=== PATIENT | female | born 1950 | race Caucasian/White ===

== ENCOUNTER 2024-01-22 20:37 | Inpatient (IN) | payer MEDICARE, SELFPAY ==
[2024-01-22] VITALS (12 sets, daily range): BP systolic 141–180; BP diastolic 79–101; BMI 39.3
[2024-01-22 18:05] LABS: % Basophils 1.2 % (0-2); % Eosinophils 2.8 % (0-6); % Immature Granulocytes 0.4 % (0-0.5); % Lymphocytes 17.7 % (20.5-51.1); % Monocytes 10.3 % (1.7-9.3); % Neutrophils 67.6 % (42.2-75.2); Absolute Basophils 0.2 10^3/uL (0-0.2); Absolute Eosinophils 0.4 10^3/uL (0-0.7); Absolute Immature Granulocytes 0.1 10^3/uL (0-0.05); Absolute Lymphocytes 2.4 10^3/uL (1.2-3.4); Absolute Monocytes 1.4 10^3/uL (0.1-0.6); Hematocrit 43.8 % (37.0-47.0); Hemoglobin 15.4 g/dL (12.0-16.0); Mean Corp Hgb Conc. 35.2 g/dL (33.0-37.0); Mean Corpuscular Hgb 31.5 pg (27.0-31.0); Mean Corpuscular Volume 89.6 fL (81.0-99.0); Mean Platelet Volume 10.3 fL (7.4-10.4); Nucleated Red Blood Cells % 0 %; Platelet Count 290 10^3/uL (130-400); Red Blood Cell Count 4.89 10^6/uL (4.20-5.40); Red Cell Dist. Width 13.1 % (11.5-14.5); White Blood Cell Count 13.2 10^3/uL (4.8-10.8)
--- NOTE | 2024-01-22 18:09 | ED.GENMED ---
History of Present Illness
General
Chief Complaint: Back Pain
Source: patient and spouse
Exam Limitations: none
Time Seen by Provider: 01/22/24 17:56
History of Present Illness
History of Present Illness:
Patient with onset of bilateral jaw pain at about 130 today. This went to her shoulders into her upper arms. No back pain or searing pain. No diaphoresis. No nausea. No history of same. Symptoms are moderate nature.
Past History
Past History
ED Past Medical History: HTN, Hypercholesterolemia and Other (Arthritis)
ED Past Surgical History: Orthopedic and Tonsilectomy
Social History
Personal:
Review of Systems
Review of Systems
All Other Systems: Not applicable
ABD/GI: Reports no symptoms; Denies bloody stools
Phy Exam
Physical Exam
Physical Exam:
GENERAL: Alert and oriented in no apparent distress
EYE: Orbits normal.
NECK: Supple
CARDIAC: Regular rate and rhythm without any obvious murmurs. Equal pulses bilaterally
LUNGS: Clear breath sounds,normal
ABDOMEN: Soft, without focal tenderness or distention
NEUROLOGICAL: Alert and oriented , grossly non-focal
SKIN: Warm and dry, no rash or lesion, no discoloration, skin intact.
MUSCULOSKELETAL: No edema,no deformity.Good color
PSYCH: Normal and appropriate interaction.
Course
Orders/Labs/Results
Orders:
Orders
01/22/24 17:44
ECG [Electrocardiogram (*1)] Urgent
Reason for Study: Other
Other Reason for Exam: back pain
EKG- Treatment ONCE
01/22/24 17:56
Complete Blood Count/With Diff Urgent
Comprehensive Metabolic Panel Urgent
PTT Urgent
Prothrombin Time Urgent
01/22/24 18:03
Heparin 1000 Units/500 ml [Heparin] 1,000 units in 500 ml .ROUTE .STK-MED
Heparin Sodium,Porcine/Ns/Pf [Heparin 2000 Units/1000 ml] 2,000 unit in 1,000 ml .ROUTE .STK-MED
Lidocaine HCl/Pf [Xylocaine-Mpf 1% Vial] 50 mg .ROUTE .STK-MED ONE
Nitroglycerin [Tridil] 1,500 mcg .ROUTE .STK-MED ONE
Verapamil Injectable [Isoptin/Verapamil Injection] 5 mg .ROUTE .STK-MED ONE
01/22/24 18:15
Troponin I Routine
01/22/24 18:38
Ticagrelor [Brilinta] 180 mg .ROUTE .STK-MED ONE
01/22/24 18:39
Fentanyl Citrate/Pf [Sublimaze] 100 mcg .ROUTE .STK-MED ONE
Heparin 5,000 units .ROUTE .STK-MED ONE
Hydrocortisone Sod Succinate [Solu-Cortef] 100 mg .ROUTE .STK-MED ONE
Midazolam HCl [Versed] 2 mg .ROUTE .STK-MED ONE
01/22/24 18:40
Aspirin Chewable [Low Strength Aspirin] 324 mg .ROUTE .STK-MED ONE
01/22/24 18:46
Heparin 10,000 units .ROUTE .STK-MED ONE
Abnormal Lab Results
01/22/24 01/22/24 01/22/24
17:56 18:41 18:54
WBC 13.2 H 10^3/uL
(4.8-10.8)
MCH 31.5 H pg
(27.0-31.0)
Abs Immat Gran (auto) 0.1 H 10^3/uL
(0-0.05)
Absolute Neuts (auto) 9.0 H 10^3/uL
(1.4-6.5)
Absolute Monos (auto) 1.4 H 10^3/uL
(0.1-0.6)
Lymphocytes % 17.7 L %
(20.5-51.1)
Monocytes % 10.3 H %
(1.7-9.3)
Glucose 119 H mg/dl
(70-99)
AST 42 H U/L
(14-36)
POC ACT Low Range 182 H Seconds 271 H Seconds
(116-155) (116-155)
01/22/24 17:56
01/22/24 17:56
Vital Signs
Initial and Last Documented VS:
Initial Vital Signs
Temp Pulse Resp BP Pulse Ox
98.1 F 81 18 180/94 96
01/22/24 16:51 01/22/24 16:51 01/22/24 16:51 01/22/24 16:51 01/22/24 16:51
Last Documented Vital Signs
Temp Pulse Resp BP Pulse Ox
98.1 F 72 18 167/89 93
01/22/24 16:51 01/22/24 18:15 01/22/24 18:00 01/22/24 18:15 01/22/24 18:00
MDM/Problems Addressed
Differential Diagnosis Includes:
EKG shows a lateral CO with ST depression significantly inferior lateral. STEMI alert was called. Aspirin Brilinta and heparin given.
*EKG
Interpreted by ED Provider?: NA
Comparison EKG: changes noted
Heart Rate: 71
Rate: normal
Rhythm: sinus
[place]: left axis deviation
Interval: normal interval
QRS Pattern: normal QRS
Ischemia: ST elevation (Lateral ST elevation with significant ischemic changes)
*Station Mechanic Interpretation
Rate: normal
Interpretation: normal
Heart Rate: 72
Rhythm: sinus
*Critical Care Note
Total Time (30-74mins, 75-104mins- exclusive of procedures): 35
ED Attending Note
-
Portions of this chart may have been created with voice recognition software.� Occasional wrong word or��sound alike� substitutions may have occurred due to the inherent limitations of voice recognition software.
Discharge Plan
Departure
Patient Disposition: Admit
Date of Disposition: 01/22/24
Time of Disposition: 18:15
Presentation/result/management discussed w/ accepting MD/DO: Invasive cardiology
Discharge Problem:
Acute lateral CO
Interventions
Interventions:
*Risk Screen - Suicide Last Done: 01/22/24 18:47
*General Assessment Last Done: 01/22/24 18:47
*Neglect/Abuse Screening Last Done: 01/22/24 18:47
ED- Fall Risk Assessment Last Done: 01/22/24 18:04
*ED COVID-19 Vaccine History Last Done: 01/22/24 18:47
*Nursing Disposition Last Done: 01/22/24 18:47
ED-Musculoskeletal Assessment Last Done: 01/22/24 18:04
Discharge Date and Time
Discharge Date/Time: 01/22/24 18:49
[2024-01-22 18:12] LABS: INR 1.01; PT 13.3 Sec (11.4-14.6)
[2024-01-22 18:13] LABS: APTT 28.2 Sec (23.4-35.0)
[2024-01-22 18:19] LABS: ALT (SGPT) 21 U/L (0-35); AST (SGOT) 42 U/L (14-36); Albumin 4.7 g/dl (3.5-5.0); Alkaline Phosphatase 68 U/L (38-126); Blood Urea Nitrogen 15 mg/dl (7-17); Calcium 9.9 mg/dl (8.4-10.2); Carbon Dioxide 25 mmol/L (22-30); Chloride 100 mmol/L (98-107); Estimated Creatinine Clearance 84 ml/min; Glucose 119 mg/dl (70-99); Potassium 4.2 mmol/L (3.5-5.1); Sodium 136 mmol/L (135-145); Total Bilirubin 0.7 mg/dl (0.2-1.3); Total Protein 7.7 g/dl (6.3-8.2); eGFR > 60.00
[2024-01-22 18:46] LABS: ACT-LR - POC 182 Seconds (116-155)
[2024-01-22 18:59] LABS: ACT-LR - POC 271 Seconds (116-155)
[2024-01-22 19:56] LABS: ACT-LR - POC 263 Seconds (116-155)
--- NOTE | 2024-01-22 20:03 | ITS.CL.CATH ---
[facility] - Catheterization
Cardiac Catheterization
Procedure Report:
LEFT HEART CATHETERIZATION
Date of Procedure: January 22, 2024
Referring: [place] emergency department
PROCEDURES:
1. Left heart catheterization, coronary angiogram.
2. Ultrasound-guided access.
3. Successful percutaneous coronary artery intervention of 2 serial stenoses--80% eccentric ostial OM1 and 90% hazy thrombotic proximal OM1 with 2 overlapping 2.25 x 12 mm and 2.75 x 15 mm Medtronic [place] drug-eluting stents, postdilated with 2.75 x
12 mm NC trek balloon at 16 malissa distally and 20 malissa proximally with an excellent angiographic result.
INDICATION: Patient is a 73-year-old female with past medical history of hypertension, hypothyroidism, hyperlipidemia, osteoarthritis of left knee, reflex sympathetic dystrophy, morbid obesity who presents this evening after having sudden onset of
jaw and neck discomfort found to have a lateral ST elevation [place] for which heart team was emergently activated and patient was taken up to the heart catheterization lab for emergent intervention. In the emergency department patient received 5000
units of unfractionated IV heparin, 325 mg of aspirin, 180 mg of Brilinta. Detailed informed consent was obtained before bringing patient up to the lab.
ACCESS: Right radial artery, 6 Egyptian sheath, and ultrasound-guided
HEMODYNAMICS : (mmHg)
AO (s/d) : 173/93
LV (s/d) :182/13
LVEDP : 22
CORONARY FINDINGS
DOMINANCE: Right
LEFT MAIN: The left main artery is a large-caliber vessel which gives rise to the left anterior descending artery and the left circumflex artery. There is minimal luminal irregularities.
LEFT ANTERIOR DESCENDING: The left anterior descending artery is a medium to large caliber vessel gives rise to 1 major diagonal branch as it courses to the anterior interventricular groove and wraps around the apex. There is mild diffuse
atherosclerotic plaque.
CIRCUMFLEX: The left circumflex artery is a medium caliber vessel which gives rise to 2 major obtuse marginal branches, moderately tortuous. OM1 has a eccentric 80% stenosis and proximal OM1 has 90% hazy thrombotic stenosis which is likely culprit
of presenting acute coronary syndrome. OM 2 has a 30 to 40% stenosis in the midportion with a subtotal occlusion in the distal portion with faint right to left collaterals.
RIGHT CORONARY ARTERY: The right coronary artery is a large-caliber, dominant vessel which gives rise to the right posterior descending artery and the right posterolateral system. There is an eccentric 70-80% stenosis with ventricularization and
significant pressure dampening upon selective engagement with a 5 Egyptian JR4 diagnostic catheter. Mid RCA has diffuse 40 to 50% stenosis and ostial RPDA has eccentric 20 to 30% stenosis. There are faint right to left collaterals.
CORONARY INTERVENTION:
SEDATION: 78 minutes of procedural sedation was utilized. An independent medical affairs leader was present to assist with and help manage the patient's level of consciousness and physiologic status.
RADIATION SUMMARY: Fluoro Time (min): 23.0, Dose (mGy): 1374.8, DAP (Gy.cm2) : 72.0
Closure Device: Vascular band over right radial artery, 10 cc of air
CONCLUSIONS
1. Successful percutaneous coronary artery intervention of 2 serial stenoses--80% eccentric ostial OM1 and 90% hazy thrombotic proximal OM1 with 2 overlapping 2.25 x 12 mm and 2.75 x 15 mm Medtronic [place] drug-eluting stents, postdilated with 2.75 x
12 mm NC trek balloon at 16 malissa distally and 20 malissa proximally with an excellent angiographic result.
2. RCA has an eccentric 70-80% stenosis with ventricularization and significant pressure dampening upon selective engagement with a 5 Egyptian JR4 diagnostic catheter. Mid RCA has diffuse 40 to 50% stenosis and ostial RPDA has eccentric 20 to 30%
stenosis.
3. OM 2 has a 30 to 40% stenosis in the midportion with a subtotal occlusion in the distal portion with faint right to left collaterals.
4. Elevated LVEDP at 22 mmHg.
RECOMMENDATIONS
1. Uninterrupted dual antiplatelet therapy with daily baby aspirin and Brilinta 90 mg twice daily along with high intensity statin and beta-vandana as tolerated.
2. Wean radial band per protocol.
3. Full echocardiogram to assess biventricular function and rule out any significant valvular abnormalities.
4. Discussed staged PCI to ostial RCA prior to discharge.
5. Aggressive management of cardiovascular risk factors.
6. Eventual outpatient referral for cardiac rehab.
Ca Rich MD, FACC, [facility]
--- NOTE | 2024-01-22 20:12 | HPS.HSE ---
Family Physician
-
Family Physician: Asya Bonilla
Chief Complaint
-
Jaw Pain
History of Present Illness
Patient is a 73-year-old female with past medical history of hypertension, hypothyroidism, hyperlipidemia, osteoarthritis of left knee, reflex sympathetic dystrophy, morbid obesity who presents this evening after having sudden onset of jaw and neck
discomfort found to have a lateral ST elevation [place] for which heart team was emergently activated and patient was taken up to the heart catheterization lab for emergent intervention. In the emergency department patient received 5000 units of
unfractionated IV heparin, 325 mg of aspirin, 180 mg of Brilinta. Detailed informed consent was obtained before bringing patient up to the lab. Patient was chest pain-free in the emergency department. A lengthy discussion had to be had given
patient initially was not sure if she wanted to undergo heart catheterization. After detailed review of the risk of not treating a possible PR she was agreeable and accepted the risk and benefits associated with the procedure.
Medical History
Past Medical History
Past Medical History: Reports HTN and Hypercholesterolemia
Past Surgical History: Reports None
Social History
Tobacco: Non-smoker
Alcohol: Occasional
Drug: None
Personal:
Living: With Family
Employment: Retired
Family History
Family History: CAD
Allergies / Home Medications
Allergies reflects when Allergies were last updated in [facility].
Home Medications with original date entered in [facility]
Allergy/Medication List:
Allergies confirmed. Questionable iodine allergy/or contrast and thus 100mg solumedrol given preprocedurally.
Medication list now available
Review of Systems
-
A 12 point ROS was completed and negative except as noted: Yes
Physical Exam
Vital Signs
Vital Signs
Temp Pulse Resp BP Pulse Ox
98.1 F 72 18 167/89 93
01/22/24 16:51 01/22/24 18:15 01/22/24 18:00 01/22/24 18:15 01/22/24 18:00
Physical Exam
General: Well Developed, Well Nourished and No Apparent Distress
HEENT: Moist mucous membranes, Atraumatic and PERRLA
Respiratory: Clear and Wheezes; No Rales, Rhonchi or Crackles
Cardiac: S1/S2, Regular Rhythm and JVD; No Murmur, Rub or Gallop
Breast: Deferred by me
GI: Soft, Non Tender, Non Distended and Normal Bowel Sounds
Musculoskeletal: No Clubbing, No Cyanosis and No Edema
Skin: Warm and Dry
Neuro: AO x 3
Psych: Calm
Laboratory Results
-
01/22/24 17:56
01/22/24 17:56
Laboratory Results
PT 13.3 Sec (11.4-14.6) 01/22/24 17:56
INR 1.01 01/22/24 17:56
APTT 28.2 Sec (23.4-35.0) 01/22/24 17:56
Total Bilirubin 0.7 mg/dl (0.2-1.3) 01/22/24 17:56
AST 42 U/L (14-36) H 01/22/24 17:56
ALT 21 U/L (0-35) 01/22/24 17:56
Alkaline Phosphatase 68 U/L (38-126) 01/22/24 17:56
Troponin I Cancelled 01/22/24 17:56
Data Reviewed
-
Critical Care Time (in minutes): 45
Diagnostic Radiology: Report Reviewed by me
Medical Tests (Nuc Med, Echo, EKG etc): Image Personally Visualized and interpreted
Lab Data: Labs Reviewed by me
Old Records: Reviewed
Impression/Plan
-
IMPRESSION:Patient is a 73-year-old female with past medical history of hypertension, hypothyroidism, hyperlipidemia, osteoarthritis of left knee, reflex sympathetic dystrophy, morbid obesity who presents this evening after having sudden onset of
jaw and neck discomfort found to have a lateral ST elevation [place] for which heart team was emergently activated and patient was taken up to the heart catheterization lab for emergent intervention. In the emergency department patient received 5000
units of unfractionated IV heparin, 325 mg of aspirin, 180 mg of Brilinta. Detailed informed consent was obtained before bringing patient up to the lab.
PLAN: s/p Successful percutaneous coronary artery intervention of 2 serial stenoses--80% eccentric ostial OM1 and 90% hazy thrombotic proximal OM1 with 2 overlapping 2.25 x 12 mm and 2.75 x 15 mm Medtronic [place] drug-eluting stents, postdilated with
2.75 x 12 mm NC trek balloon at 16 malissa distally and 20 malissa proximally with an excellent angiographic result.
RECOMMENDATIONS
1. Uninterrupted dual antiplatelet therapy with daily baby aspirin and Brilinta 90 mg twice daily along with high intensity statin and beta-vandana as tolerated.
2. Wean radial band per protocol.
3. Full echocardiogram to assess biventricular function and rule out any significant valvular abnormalities.
4. Discussed staged PCI to ostial RCA prior to discharge.
5. Aggressive management of cardiovascular risk factors.
6. Eventual outpatient referral for cardiac rehab.
7. We will consult internal medicine to help with her chronic medical problems.
--- NOTE | 2024-01-22 20:35 | PTCARENOTE ---
Admitted to IVU from cardiac color laboratory technician with 2 color laboratory technician RNs present. Pt awake, alert, oriented x 4. Speech clear. On placed on 2L/NC for sats 88% on room air. BBS present. Clear to auscultation. Decreased to B bases. Pt in SR. VS per protocol. See
flowsheet. No c/o jaw pain, tooth pain, no c/o pain to shoulders or arms. No c/o CP or back pain. R radial TR band intact with 10 mls placed from color laboratory technician at 1956. Protocol followed for release of air from TR band. R hand sat after O2 applied at 2
L/NC is 98%-100%. IV to left hand capped. Audible heart tones. EKG done. Troponin drawn per order. Belly soft, nontender. Normoactive bowel sounds x 4. Palpable pulses to L radial and B DP and PT. Pt positioned and repositioned in bed according to
her comfort level with hx of cervical laminectomy and RSD. Multiple pillows tried under her head and under knees according to pillow's thickness and her comfort level. Admission questions completed. and son at bedside to see pt.
--- NOTE | 2024-01-22 20:47 | CON.HOSP ---
Family Physician
-
Family Physician: Asya Bonilla
Chief Complaint
-
jaw pain
History of Present Illness
73-year-old female past medical history of asthma, hypertension, hypothyroidism, hyperlipidemia, osteoarthritis of left knee, reflex sympathetic dystrophy, morbid obesity presented today with sudden onset of jaw and neck discomfort and found to have
lateral STEMI. Emergent catheterization was performed with PCI performed.
Patient denies any symptoms at this time apart from some leg cramping from her position in bed. She denies any chest pain or shortness of breath.
Medical History
Past Medical History
Past Medical History: Reports Other (asthma, hypertension, hypothyroidism, hyperlipidemia, osteoarthritis of left knee, reflex sympathetic dystrophy, morbid obesity)
Past Surgical History: Reports None
Social History
Tobacco: Non-smoker
Alcohol: None
Drug: None
Allergies / Home Medications
Allergies reflects when Allergies were last updated in [facility].
Home Medications with original date entered in [employer]
Allergy/Medication List:
Allergies
Allergy/AdvReac Type Severity Reaction Status Date / Time
azithromycin Allergy nausea, Verified 01/22/24 18:09
[From Zithromax Z-Reuben] stomach
pain, rash
levofloxacin [From Levaquin] Allergy nausea, Verified 01/22/24 18:09
stomach
pain, rash
Penicillins Allergy nausea, Verified 01/22/24 18:09
stomach
pain, rash
Shellfish *RETIRED-03/19/12 Allergy Unknown Verified 01/22/24 18:09
[Shellfish]
Sulfa (Sulfonamide Allergy rash, Verified 01/22/24 18:09
Antibiotics) lightheaded,
[Sulfa(Sulfonamide nausea,
Antibiotics)] weakness
chocolate Allergy throat Uncoded 01/22/24 18:09
closes
environmental Allergy lightheaded, Uncoded 01/22/24 18:09
sneezing,
hayfever
symptoms
generic pills Allergy rash, Uncoded 01/22/24 18:09
lightheaded,
nausea,
weakness
pineapple, plantain Allergy lightheaded, Uncoded 01/22/24 18:09
mouth
tingles &
chaudhry
Home Medications
albuterol sulfate 90 mcg/actuation aerosol inhaler (Ventolin HFA) 2 puff inhalation R BIDPRN PRN sob/wheezing 01/22/24
ascorbic acid (vitamin C) 500 mg tablet (Vitamin C) 500 mg PO DAILY 01/22/24
beclomethasone diprop (AQ) 42 mcg (0.042 %) nasal spray 84 mcg intranasal BID 01/22/24
calcium carbonate (Calcium 600) 600 mg PO DAILY 01/22/24
diazepam 2 mg tablet 2 mg PO BIDPRN PRN muscle spasms 01/22/24
enalapril maleate 20 mg tablet (Vasotec) 20 mg PO DAILY 01/22/24
fexofenadine 60 mg-pseudoephedrine ER 120 mg tablet,ext.release,12 hr (Lacey-D 12 Hour) 1 tab PO DAILY 01/22/24
ibuprofen 200 mg tablet (Advil) 400 mg PO BIDWMEAL 01/22/24
levothyroxine 75 mcg tablet (Synthroid) 75 mcg PO DAILY 01/22/24
magnesium 250 mg tablet 250 mg PO DAILY 01/22/24
multivitamin-ferrous fumarate-folic acid 18 mg-400 mcg tablet (Centrum) 1 tab PO DAILY 01/22/24
prednisone 5 mg tablet 5 mg PO DAILYPRN PRN swelling 01/22/24
vitamin E 268 mg (400 unit) capsule 268 mg PO DAILY 01/22/24
Review of Systems
-
History Source: Patient
A 12 point Review of Systems was completed except as noted: Yes
Constitutional: Reports No Symptoms
EENT: Reports No Symptoms
Respiratory: Reports See HPI
Cardiac: Reports See HPI
Abdomen/GI: Reports No Symptoms
: Reports No Symptoms
Musculoskeletal: Reports No Symptoms
Skin: Reports No Symptoms
Neurological: Reports No Symptoms
Endocrine: Reports No Symptoms
Hematologic/Lymphatic: Reports No Symptoms
Psych: Reports No Symptoms
Physical Exam
Vital Signs
Vital Signs
Temp Pulse Resp BP Pulse Ox
98.1 F 72 18 167/89 93
01/22/24 16:51 01/22/24 18:15 01/22/24 18:00 01/22/24 18:15 01/22/24 18:00
Physical Exam
General: Well Developed, Well Nourished and No Apparent Distress
HEENT: Normocephalic, Moist Mucous Membranes and Atraumatic
Respiratory: Clear
Cardiac: S1/S2 and Regular Rhythm; Negative Murmur or Rub
GI: Soft, Non Tender, Non Distended and Normal Bowel Sounds
Rectal: Deferred by Provider
Musculoskeletal: No Clubbing, No Cyanosis and No Edema
Skin: Negative Rash
Neuro: Nonfocal/Grossly Intact
Laboratory Results
-
Laboratory Results
01/22/24 17:56
01/22/24 17:56
PT 13.3 Sec (11.4-14.6) 01/22/24 17:56
INR 1.01 01/22/24 17:56
APTT 28.2 Sec (23.4-35.0) 01/22/24 17:56
Total Bilirubin 0.7 mg/dl (0.2-1.3) 01/22/24 17:56
AST 42 U/L (14-36) H 01/22/24 17:56
ALT 21 U/L (0-35) 01/22/24 17:56
Alkaline Phosphatase 68 U/L (38-126) 01/22/24 17:56
Troponin I Cancelled 01/22/24 17:56
Data Reviewed
-
Lab Data: Labs Reviewed
Old Records: Reviewed
Impression / Plan
-
IMPRESSION:
PLAN:
# Lateral STEMI status post PCI of ostial OM1, proximal OM1
-Aspirin, Brilinta, statin, metoprolol started
-Echo pending
-cardiology following
Essential hypertension
-Hold enalapril given catheterization
-As needed hydralazine for elevated blood pressure greater than 170
Asthma
-Continue albuterol as needed
Hypothyroidism
-Continue levothyroxine
Hyperlipidemia
Osteoarthritis of left knee
-Tylenol for pain
-Continue diazepam
-Hold ibuprofen
Reflex sympathetic dystrophy
Morbid obesity
Full code
DVT prophylaxis�subcutaneous heparin
Cardiac diet
--- NOTE | 2024-01-22 22:00 | PTCARENOTE ---
Troponin level 16.4. Saloem OLIVAS notified. No orders given. To check troponin level at 0230 per orders.
Pt refused her atorvastatin due to illness in past with this medication. Pt states she felt thar her 'throat was swollen' after taking this medication at times. PA made aware.
See flowsheet for TR band/post cath.
--- NOTE | 2024-01-22 22:39 | PTCARENOTE ---
Hepled to BSC with RN. Guarding right radial TR band. Pt voided 1150 mls of clear, yellow urine. Pt helped back to bed. Remains in SR. No c/o pain. Sats 100% on 2L/NC.
[2024-01-22] MEDS: LIPITOR PO (23:04)
[2024-01-23] VITALS (13 sets, daily range): BP systolic 114–167; BP diastolic 55–105; BMI 37.4
--- NOTE | 2024-01-23 00:42 | PTCARENOTE ---
Pt helped up to BSC to void 1000 mls of clear, yellow urine. Pt helped back to bed. Repositioned in bed. 2 mls removed from TR band. See flowsheet. Meds given as scheduled.
[2024-01-23] MEDS: HEPARIN 5000 UNITS SC ×2 (00:43→10:10)
[2024-01-23 03:15] LABS: Hemoglobin 15.8 g/dL (12.0-16.0); Mean Corp Hgb Conc. 35.9 g/dL (33.0-37.0); Mean Corpuscular Hgb 31.7 pg (27.0-31.0); Mean Corpuscular Volume 88.4 fL (81.0-99.0); Mean Platelet Volume 10.2 fL (7.4-10.4); Platelet Count 335 10^3/uL (130-400); Red Blood Cell Count 4.98 10^6/uL (4.20-5.40); Red Cell Dist. Width 12.9 % (11.5-14.5); White Blood Cell Count 11.3 10^3/uL (4.8-10.8)
[2024-01-23 03:29] LABS: HDL Cholesterol 45 mg/dl; LDL Cholesterol, Calculated 193 mg/dl; Total Cholesterol 283 mg/dl (50-199); Triglyceride 229 mg/dl (10-149); Very Low Density Lipoprotein 45 mg/dl (0-30)
--- NOTE | 2024-01-23 04:29 | PTCARENOTE ---
Pt labs and EKG done. Helped to BSC to void 450 mls clear, yellow urine. Pt then weighed on standing scale. Pt helped to recliner chair and positioned, repositioned multiple times with pillows for comfort. No c/o jaw pain, CP, no other anginal pain.
Room air sat 95-96%.
Troponin of 40.7 showed to DEISY Mcmahon along with morning EKG. PA also aware of BP. Hydralazine 5 mg prn order for SBP > 170.
Will continue to assess/monitor pt.
[2024-01-23] MEDS: SYNTHROID 75 MCG PO (07:22)
--- NOTE | 2024-01-23 08:26 | PTCARENOTE ---
Assumed care of pt from prev nsg shift; Pt AAOX3, mildly anxious but easily calmed once her questions are answered. Pt w/no CP, jaw pain, or SOB. Pt assisted OOB to for breakfast. Pt's VS stable w/HR in the 80's & BP this AM 117/67. Pt is SR on
telemetry monitoring. R radial access site w/dressing C/D/I w/no signs or symptoms of bleeding or hematoma. This RN reiterated to pt her RUE restrictions post cath. Pt assisted w/ calling breakfast order. Pt w/call dixon within reach & plan of care
ongoing.
--- NOTE | 2024-01-23 08:53 | W.PN.CARDCBS ---
Addendum entered and electronically signed by Rj Cruz MD 01/23/24 11:34:
I saw and examined the patient.
The Sales Assistants And Salespersons's note was reviewed and I agree with the note.
Comment:
GEN: No distress, awake, Ox3
HEENT: supple, anicteric, mmm
LUNGS: CTA, no wheezes/rales
CV: Reg, S1/S2, 1/6 syst LSB, no gallop
ABD: soft, BS+, NT/ND
EXT: No edema
NEURO: Gross non-focal
SKIN: No rash
Plan:
No new chest pains. Will check echocardiogram today.
Continue aspirin and Brilinta.
Continue Toprol and high-dose atorvastatin. LDL was 193. Troponins have peaked at 40.
Continue to trend LFTs.
Restart enalapril.
We discussed that she should not be taking Sudafed or Decongestant allergy type products.
Original Note:
Today's Communication / Plan
-
continue post [place] care
trend troponin to peak
Echo today
DAPT
Impression / Plan
-
PCP: Asya Bonilla MD
CDY: Ca Rich MD (new to pt)
IMPRESSION:
Lateral STEMI
post PCI OM1 ostial/prox 2.25 x 12 mm and 2.75 x 15 mm Medtronic Sylvester overlapping LEONORA 01/22/24
HTN
HLD
Hypothyroidism
Asthma
OA left knee
Reflex sympathetic dystrophy after emergent cervical laminectomy
Obesity
Multiple allergies, cannot tolerate generic medications
PLAN:
post PCI no c/o CP, SOB
tele SR no sig ectopy
troponin still trending 40.7 this am
Rad site stable
Echo today
DAPT ASA/Brilinta (CM to eval cost) She states she has allergy to ASA, but unsure reaction, will monitor closely
LDL 193 refused statin last night as it was generic, reinforced importance of compliance
Will check with pharmacy if we have any brand name meds available
New start to metoprolol, resume enalapril if bp rises
appreciate hospitalist c/s for her complex pmhx
Cardiac rehab c/s
f/u DCA 2-4 weeks
continue to monitor on tele another 24-48 hours
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
Subjective
Date of Service: January 23, 2024
no cp, sob
Objective
Labs:
01/23/24 02:58
Labs
Hgb 15.8 g/dL (12.0-16.0) 01/23/24 02:58
Hct 44.0 % (37.0-47.0) 01/23/24 02:58
Plt Count 335 10^3/uL (130-400) 01/23/24 02:58
PT 13.3 Sec (11.4-14.6) 01/22/24 17:56
INR 1.01 01/22/24 17:56
APTT 28.2 Sec (23.4-35.0) 01/22/24 17:56
Sodium 136 mmol/L (135-145) 01/22/24 17:56
Potassium 4.2 mmol/L (3.5-5.1) 01/22/24 17:56
BUN 15 mg/dl (7-17) 01/22/24 17:56
Creatinine 0.7 mg/dL (0.6-1.0) 01/22/24 17:56
Glucose 119 mg/dl (70-99) H 01/22/24 17:56
Troponins
01/22/24 01/22/24 01/22/24
17:56 18:15 21:02
Troponin I Cancelled Cancelled 16.400 H*
01/23/24
02:58
Troponin I 40.700 H* D
Vital Signs and I&O:
Vital Signs
Temp Pulse Resp BP Pulse Ox
98.3 F 77 18 117/67 96
01/23/24 07:07 01/23/24 07:30 01/23/24 07:07 01/23/24 07:09 01/23/24 08:00
Vital Signs
Temp Pulse Resp BP Pulse Ox
98.3 F 77 18 117/67 96
01/23/24 07:07 01/23/24 07:30 01/23/24 07:07 01/23/24 07:09 01/23/24 08:00
Intake & Output
01/21/24 01/22/24 01/23/24 01/24/24
06:59 06:59 06:59 06:59
Intake Total 450 / 450
Output Total 2600 / 2600
Balance -2150 / -2150
Physical Exam
Physical Exam
NAD, AOX3
S1, S2, RRR
CTAB, non labored, no wheeze
SNTND Bsx4
R rad site c/d/i no HT, good pulse
--- NOTE | 2024-01-23 09:52 | CM ---
Addendum entered by Marge Christopher RN 01/23/24 10:46:
Patient is agreeable to cost
Original Note:
Pricing on Brilinta through patients [facility] ID# [id number], is $86.14 for a 30 day supply retail and $125 for mail order 90 day supply. I will place a free 30 day coupon in the patients red discharge folder
[2024-01-23] MEDS: TOPROL XL 25 MG PO (10:09)
[2024-01-23] MEDS: VITAMIN C 500 MG PO (10:09)
[2024-01-23] MEDS: MAG-TAB SR 84 MG PO (10:09)
[2024-01-23] MEDS: BRILINTA 90 MG PO ×2 (10:09→19:50)
[2024-01-23] MEDS: VITAMIN E 400 UNITS PO (10:09)
[2024-01-23] MEDS: LOW STRENGTH ASPIRIN 81 MG PO (10:09)
[2024-01-23] MEDS: THERAGRAN 1 TABLET PO (10:09)
[2024-01-23] MEDS: CLARITIN PO ×2 (10:09→10:18)
[2024-01-23] MEDS: OSCAL CAL 500 PO ×2 (10:10→10:25)
[2024-01-23 10:35] LABS: ALT (SGPT) 36 U/L (0-35); AST (SGOT) 206 U/L (14-36); Albumin 4.8 g/dl (3.5-5.0); Alkaline Phosphatase 75 U/L (38-126); Blood Urea Nitrogen 14 mg/dl (7-17); Calcium 10.4 mg/dl (8.4-10.2); Carbon Dioxide 22 mmol/L (22-30); Chloride 101 mmol/L (98-107); Estimated Creatinine Clearance 82 ml/min; Glucose 140 mg/dl (70-99); Potassium 3.9 mmol/L (3.5-5.1); Sodium 139 mmol/L (135-145); Total Bilirubin 0.8 mg/dl (0.2-1.3); Total Protein 7.7 g/dl (6.3-8.2); eGFR > 60.00
--- NOTE | 2024-01-23 10:45 | CM ---
Chart reviewed. Patient is independent of ADLS, lives with her in a 2 [address], 2-3 [address] via garage, ambulates with a SPC and RW. Patient is not current with VN and is not interested. Plan is for the patient to return home. CM to follow
[2024-01-23 11:58] LABS: Glycohemoglobin (HgbA1c) 5.4 % (4.0-5.6)
--- NOTE | 2024-01-23 15:11 | W.PN.HOSP.TC ---
Today's Communication/Plan
-
Will continue post [place] management. Continue uninterrupted dual antiplatelet therapy with baby aspirin and Brilinta 90 mg twice daily along with high intensity statin and beta-vandana as tolerated. A full echocardiogram will be conducted to assess
biventricular function and rule out any significant valvular abnormalities. Patient has discussed staged PCI to ostial RCA prior to discharge with cardiology.
Assessment / Plan
Assessment / Plan
- Lateral STEMI status post PCI of ostial OM1, proximal OM1: Monitoring
Aspirin, Brilinta, statin, metoprolol started
Echo pending
cardiology following
Troponins were 40.7 on the morning of 01/22 and then later on dropped to 25.4 later on in the day.
Patient already discussed staged PCI to ostial RCA prior to discharge. Currently agreeable.
Patient has been recommended to follow with aggressive management of cardiovascular risk factors in the outpatient setting. Patient will also need eventual referral for cardiac rehab.
Echocardiogram conducted on 01/22 showed an abnormal ECG with nonspecific ST and T wave abnormalities. No significant changes found when compared to prior EKG from 21 January.
- Essential hypertension: Stable - Monitoring
Hold enalapril given catheterization
As needed hydralazine for elevated blood pressure greater than 170
- Asthma: Stable - Monitoring
continue albuterol as needed
-Elevated liver enzymes: Monitoring
AST is 206 and ALT is 36. Possibly secondary to physical stress from cardiac dysfunction. Will continue to monitor
- Hypothyroidism: Monitoring
Continue levothyroxine
- Hyperlipidemia: Monitoring
Triglycerides are 229 and total cholesterol is 283
High intensity statin
- Osteoarthritis of left knee: Stable - Monitoring
Tylenol for pain
Continue diazepam
Hold ibuprofen
- Reflex sympathetic dystrophy: Stable
As stated by patient in her past medical history.
- Morbid obesity: Stable - Monitoring
BMI is 37.4 which categorizes the patient is morbidly obese.
Full code
DVT prophylaxis�subcutaneous heparin
Cardiac diet
Anticipated Discharge: > 48 hours
Subjective/Interval History
-
Date of Service: January 23, 2024
Met with patient at the bedside. Overall, she feels that she is doing about the same as she was doing prior to her admission. She did not sleep well due to all of the sounds that she was hearing on the unit overnight. She does not report any
chest pain difficulty breathing or nausea. She does not have any shortness of breath. When asked about her chest pain she frequently needed to be redirected as she would veer off into other tangential topics. Patient is kind and pleasant during
discussion and is eager to share her health conditions and past medical history.
Objective Data
-
Labs:
Laboratory Results
01/23/24 01/23/24
02:58 10:05
WBC 11.3 H
Hgb 15.8
Hct 44.0
Plt Count 335
Sodium 139
Potassium 3.9
Chloride 101
Carbon Dioxide 22
BUN 14
Creatinine 0.7
Glucose 140 H
Calcium 10.4 H
Total Bilirubin 0.8
AST 206 H
ALT 36 H
Alkaline Phosphatase 75
Vital Signs:
Vital Signs
Temp Pulse Resp BP Pulse Ox
98.2 F 61 18 128/58 95
01/23/24 14:57 01/23/24 12:30 01/23/24 14:57 01/23/24 11:51 01/23/24 14:57
I&O
01/22/24 01/23/24 01/24/24
06:59 06:59 06:59
Intake Total 450 / 450 720 / 720
Output Total 2600 / 2600
Balance -2150 / -2150 720 / 720
Review of Systems
-
History Source: Patient
Constitutional: Reports Fatigue and Sleep Disturbance
EENT: Reports No Symptoms Reported
Respiratory: Reports No Symptoms
Cardiac: Reports No Symptoms
Abdomen/GI: Reports No Symptoms
Breast: Reports No Symptoms
Genitourinary: Reports No Symptoms
Skin: Reports Other (tingling skin bilaterally on forearms)
Endocrine: Reports No Symptoms
Hematologic / Lymphatic: Reports No Symptoms
Allergy / Immunology: Reports No Symptoms
Physical Exam
-
General: Well Developed, Well Nourished, No Apparent Distress and Comfortable
HEENT: Normocephalic and Moist Mucous Membranes
Respiratory: Clear to Auscultation
Cardiac: Regular Rhythm and S1/S2
Breast: Deferred by me
GI: Soft, Nontender, Nondistended and Normal Bowel Sounds
Rectal: Deferred by Provider
Genito-urinary: Deferred by me
Musculoskeletal: No Clubbing and No Cyanosis
Skin: Warm and Dry
Neuro: Nonfocal/Grossly Intact
--- NOTE | 2024-01-23 16:08 | W.PN.UPDATE ---
Update Note
Progress Note Update
I saw and evaluated the patient. I reviewed the resident�s note and agree with findings and plan as documented in the resident�s note.
Patient currently without chest pain or shortness of breath. Clinically no signs of heart failure.
Continue with anticoagulation and antiplatelet agents per cardiology. Cardiology evaluation including EKGs, cardiac catheterization and intervention as noted. Await echocardiogram.
With regards to chronic medical conditions continue with Synthroid. Hold on checking any TSH with acute issues. Also hold on OPHELIA inhibitor's as her blood pressure is mostly under goal plus she is initiated on BB but might need to restart it
depending on her EF.
[2024-01-23] MEDS: LOVENOX 40 MG SC (18:42)
[2024-01-23] MEDS: LIPITOR 80 MG PO (18:42)
[2024-01-23] MEDS: VASOTEC 5 MG PO (19:50)
--- NOTE | 2024-01-23 23:45 | PTCARENOTE ---
Pt received start of shift HR SR. R radial dressing CDI. Site soft, no hematoma. Slight ecchymosis. Pt denies any CP or jaw/tooth pain. Pt informed to use call dixon prior to getting out of bed. call dixon within reach.
[2024-01-24 02:24] VITALS: BP 121/84
[2024-01-24] MEDS: VALIUM 2 MG PO (02:36)
[2024-01-24 03:58] LABS: Hematocrit 46.2 % (37.0-47.0); Mean Corp Hgb Conc. 34.6 g/dL (33.0-37.0); Mean Corpuscular Hgb 31.5 pg (27.0-31.0); Mean Corpuscular Volume 90.9 fL (81.0-99.0); Platelet Count 354 10^3/uL (130-400); Red Blood Cell Count 5.08 10^6/uL (4.20-5.40); Red Cell Dist. Width 13.3 % (11.5-14.5); White Blood Cell Count 10.6 10^3/uL (4.8-10.8)
[2024-01-24 04:04] VITALS: BMI 37.5
[2024-01-24 04:28] LABS: ALT (SGPT) 34 U/L (0-35); AST (SGOT) 147 U/L (14-36); Albumin 4.6 g/dl (3.5-5.0); Alkaline Phosphatase 86 U/L (38-126); Blood Urea Nitrogen 14 mg/dl (7-17); Calcium 10.2 mg/dl (8.4-10.2); Carbon Dioxide 28 mmol/L (22-30); Chloride 101 mmol/L (98-107); Estimated Creatinine Clearance 82 ml/min; Glucose 90 mg/dl (70-99); Magnesium 1.9 mg/dl (1.6-2.3); Potassium 4.2 mmol/L (3.5-5.1); Sodium 138 mmol/L (135-145); Total Bilirubin 1.3 mg/dl (0.2-1.3); Total Protein 7.4 g/dl (6.3-8.2); eGFR > 60.00
[2024-01-24 07:36] VITALS: BP 105/77
--- NOTE | 2024-01-24 08:34 | PTCARENOTE ---
Received report on patient. Assisted pt to the bathroom, voided moderate amount of urine. Patient now in chair, chair alarm on. AxO but forgetful. VSS.
[2024-01-24] MEDS: VASOTEC PO (08:57)
[2024-01-24] MEDS: SYNTHROID 75 MCG PO (08:59)
[2024-01-24] MEDS: LOW STRENGTH ASPIRIN 81 MG PO (09:00)
[2024-01-24] MEDS: BRILINTA 90 MG PO (09:00)
[2024-01-24] MEDS: MAG-TAB SR 84 MG PO (09:00)
[2024-01-24] MEDS: OSCAL CAL 500 500 MG PO (09:00)
[2024-01-24] MEDS: TOPROL XL 25 MG PO (09:02)
[2024-01-24] MEDS: THERAGRAN 1 TABLET PO (09:02)
[2024-01-24 09:05] VITALS: BP 147/111
[2024-01-24 09:07] VITALS: BP 120/70
[2024-01-24] MEDS: VITAMIN E 400 UNITS PO (09:07)
[2024-01-24] MEDS: CLARITIN 10 MG PO (09:07)
[2024-01-24] MEDS: VITAMIN C 500 MG PO (09:07)
[2024-01-24 11:52] VITALS: BP 122/84
--- NOTE | 2024-01-24 12:35 | W.PN.CARDCBS ---
Addendum entered and electronically signed by Rj Cruz MD 01/24/24 15:15:
I saw and examined the patient.
The Word Processor Operator's note was reviewed and I agree with the note.
Comment:
GEN: No distress, awake, Ox3
HEENT: supple, anicteric, mmm
LUNGS: CTA, no wheezes/rales
CV: Reg, S1/S2, 1/6 syst LSB, no gallop
ABD: soft, BS+, NT/ND
EXT: No edema
NEURO: Gross non-focal
SKIN: No rash
Plan:
Overall doing well status post ID. I reviewed case with interventional cardiology and plan is for her to follow-up as outpatient and consider PCI of RCA.
Continue aspirin, Brilinta, atorvastatin, metoprolol and enalapril.
Original Note:
Today's Communication / Plan
-
post ID, stable for d/c home
f/u DCA, plan for outpt staged PCI RCA after recovers from ID
DAPT
Impression / Plan
-
PCP: Asya Bonilla MD
CDY: Ca Rich MD (new to pt)
IMPRESSION:
Lateral STEMI
post PCI OM1 ostial/prox 2.25 x 12 mm and 2.75 x 15 mm Medtronic [place] overlapping LEONORA 01/22/24
Residual ostial RCA disease
HTN
HLD
Hypothyroidism
Asthma
OA left knee
Reflex sympathetic dystrophy after emergent cervical laminectomy
Obesity
Multiple allergies, cannot tolerate generic medications
PLAN:
post PCI no c/o CP, SOB
tele SR no sig ectopy
troponin peaked at 40.7
Rad site stable
Echo EF 60-65%, inf/lat HK, mild LVH, mild MR/AR
Residual ostial 70-80% RCA stenosis will be treated as a staged intervention after recovers from ID
DAPT ASA/Brilinta. She states she has allergy to ASA, but is tolerating w/o s/e
LDL 193 continue atorvastatin 80mg
New start to metoprolol, continue enalapril
appreciate hospitalist c/s for her complex pmhx
Cardiac rehab c/s
f/u DCA 2-4 weeks
stable for d/c home
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
Subjective
Date of Service: January 24, 2024
no cp,sob
Objective
Labs:
01/24/24 02:47
01/24/24 02:47
Labs
Hgb 16.0 g/dL (12.0-16.0) 01/24/24 02:47
Hct 46.2 % (37.0-47.0) 01/24/24 02:47
Plt Count 354 10^3/uL (130-400) 01/24/24 02:47
PT 13.3 Sec (11.4-14.6) 01/22/24 17:56
INR 1.01 01/22/24 17:56
APTT 28.2 Sec (23.4-35.0) 01/22/24 17:56
Sodium 138 mmol/L (135-145) 01/24/24 02:47
Potassium 4.2 mmol/L (3.5-5.1) 01/24/24 02:47
BUN 14 mg/dl (7-17) 01/24/24 02:47
Creatinine 0.7 mg/dL (0.6-1.0) 01/24/24 02:47
Glucose 90 mg/dl (70-99) 01/24/24 02:47
Troponins
01/22/24 01/22/24 01/22/24
17:56 18:15 21:02
Troponin I Cancelled Cancelled 16.400 H*
01/23/24 01/23/24 01/24/24
02:58 10:05 09:16
Troponin I 40.700 H* D 25.400 H* D Cancelled
Vital Signs and I&O:
Vital Signs
Temp Pulse Resp BP Pulse Ox
98.8 F 63 20 122/84 98
01/24/24 11:50 01/24/24 12:15 01/24/24 11:50 01/24/24 11:52 01/24/24 11:50
Vital Signs
Temp Pulse Resp BP Pulse Ox
98.8 F 63 20 122/84 98
01/24/24 11:50 01/24/24 12:15 01/24/24 11:50 01/24/24 11:52 01/24/24 11:50
Intake & Output
01/22/24 01/23/24 01/24/24 01/25/24
06:59 06:59 06:59 06:59
Intake Total 450 / 450 720 / 720 960 / 960
Output Total 2600 / 2600
Balance -2150 / -2150 720 / 720 960 / 960
Physical Exam
Physical Exam
NAD, AOX3
S1, S2, RRR
CTAB, non labored
SNTND Bsx4
R rad site c/d/i
--- NOTE | 2024-01-24 14:15 | PTCARENOTE ---
Reviewed discharge instructions with the patient and her and they state their understanding. Patient's had received a text that brilinta was ready but was worried that the other medications were not there. Call placed to [facility] and
scrips confirmed. Patient then concerned that not all of her scrips were brand and she might have difficulty with generic. Notified Analisa Cunningham NP, patient has been receiving generic in new medications here without any issues. Notified the patient and
her if this is still a concern to have their PCP switch to brand name. Patient discharged home with her .
--- NOTE | 2024-01-24 15:06 | W.DS.TRANS ---
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
-
Discharge Instructions:
Discharge Diagnosis/Procedures STEMI, Angioplasty with stent to obtuse marginal
artery x2
Diet Low Cholesterol
Driving Restrictions No driving for 24 hours
Other Services Cardiac Rehab
Instructions:
Stand-Alone Forms: DC Instructions- Cath/EP Lab
Changes to Home Medications: Yes
Discharge Medications:
DC Medications w/original date entered in [employer]
albuterol sulfate 90 mcg/actuation aerosol inhaler (Ventolin HFA) 2 puff inhalation R BIDPRN PRN sob/wheezing 01/22/24
ascorbic acid (vitamin C) 500 mg tablet (Vitamin C) 500 mg PO DAILY Supplement 01/22/24
beclomethasone diprop (AQ) 42 mcg (0.042 %) nasal spray 84 mcg intranasal BID Anti-Inflammatory 01/22/24
calcium carbonate (Calcium 600) 600 mg PO DAILY Supplement 01/22/24
diazepam 2 mg tablet 2 mg PO BIDPRN PRN muscle spasms 01/22/24
levothyroxine 75 mcg tablet (Synthroid) 75 mcg PO DAILY Thyroid 01/22/24
magnesium 250 mg tablet 250 mg PO DAILY Supplement 01/22/24
multivitamin-ferrous fumarate-folic acid 18 mg-400 mcg tablet (Centrum) 1 tab PO DAILY Supplement 01/22/24
prednisone 5 mg tablet 5 mg PO DAILYPRN PRN swelling 01/22/24
vitamin E 268 mg (400 unit) capsule 268 mg PO DAILY Supplement 01/22/24
ticagrelor 90 mg tablet (Brilinta) 90 mg PO BID #60 tabs 01/23/24
aspirin 81 mg chewable tablet 81 mg PO DAILY #1 tab 01/24/24
atorvastatin 80 mg tablet 80 mg PO QPM #90 tabs 01/24/24
enalapril maleate 5 mg tablet 5 mg PO BID #60 tabs 01/24/24
loratadine 10 mg tablet 10 mg PO DAILY #1 tab 01/24/24
metoprolol succinate 25 mg tablet,extended release 24 hr 25 mg PO DAILY #90 tabs 01/24/24
nitroglycerin 0.4 mg sublingual tablet 0.4 mg sublingual [id number] PRN chest pain #25 tabs 01/24/24
Home Medication Changes
new to nitro, brilinta, atrovastatin, asa, toprol, lower dose enalapril
Pending Results: No
--- NOTE | 2024-01-24 15:07 | W.PN.HOSP.TC ---
Today's Communication/Plan
-
Continue the current treatments
Repeat coronary PCI per cards.
Assessment / Plan
Assessment / Plan
- Lateral STEMI status post PCI of ostial OM1, proximal OM1
Aspirin, Brilinta, statin, metoprolol started
Echo noted
cardiology following
Troponins were 40.7 on the morning of 01/22 and then later on dropped to 25.4 later on in the day.
Patient already discussed staged PCI to ostial RCA prior to discharge. Currently agreeable.
Patient has been recommended to follow with aggressive management of cardiovascular risk factors in the outpatient setting. Patient will also need eventual referral for cardiac rehab.
Echocardiogram conducted on 01/22 showed an abnormal ECG with nonspecific ST and T wave abnormalities. No significant changes found when compared to prior EKG from 21 January.
- Essential hypertension: Stable
Resumed enalapril
Now on BB as well
- Asthma: Stable - Monitoring
continue albuterol as needed
-Elevated liver enzymes:
AST is 206 and ALT is 36. Possibly secondary to NV /myocardiocytes injury
- Hypothyroidism:
Continue levothyroxine
- Hyperlipidemia:
Triglycerides are 229 and total cholesterol is 283
High intensity statin
- Osteoarthritis of left knee: Stable
Tylenol for pain
Continue diazepam
Hold ibuprofen
- Reflex sympathetic dystrophy: Stable
As stated by patient in her past medical history.
- Morbid obesity: Stable
BMI is 37.4 which categorizes the patient is morbidly obese.
Full code
DVT prophylaxis�subcutaneous heparin
Cardiac diet
Anticipated Discharge: > 48 hours
Subjective/Interval History
-
Date of Service: January 24, 2024
Patient without further chest pain or shortness of breath.
Objective Data
-
Labs:
Laboratory Results
01/24/24
02:47
WBC 10.6
Hgb 16.0
Hct 46.2
Plt Count 354
Sodium 138
Potassium 4.2
Chloride 101
Carbon Dioxide 28
BUN 14
Creatinine 0.7
Glucose 90
Calcium 10.2
Total Bilirubin 1.3
AST 147 H
ALT 34
Alkaline Phosphatase 86
Vital Signs:
Vital Signs
Temp Pulse Resp BP Pulse Ox
98.8 F 63 20 122/84 98
01/24/24 11:50 01/24/24 12:15 01/24/24 11:50 01/24/24 11:52 01/24/24 11:50
I&O
01/23/24 01/24/24 01/25/24
06:59 06:59 06:59
Intake Total 450 / 450 720 / 720 960 / 960
Output Total 2600 / 2600
Balance -2150 / -2150 720 / 720 960 / 960
Review of Systems
-
Respiratory: Denies Trouble Breathing
Cardiac: Denies Chest Pain
Abdomen/GI: Denies Abdominal Pain, Nausea or Vomiting
Neuro: Denies Dizzy
Physical Exam
-
General: No Apparent Distress
HEENT: Moist Mucous Membranes
Respiratory: Clear to Auscultation
Cardiac: Regular Rhythm and S1/S2
GI: Soft
Neuro: AO x 3
Data Reviewed
-
Labs: Labs Reviewed by me
== END 2024-01-24 15:41 | disposition home or self-care (01) | DRG 322 ==
LOC: IVU 20:37
PROVIDERS: Nurse Practitioner Adult Health; ADMITTING PHYSICIAN Internal Medicine Interventional Cardiology; EMERGENCY PHYSICIAN Emergency Medicine; FAMILY PHYSICIAN Internal Medicine; OTHER PHYSICIAN Hospitalist
PROC: 027035Z Dilation of Coronary Artery, One Artery with Two Drug-eluting Intraluminal Devices, Percutaneous Approach (ICD-10-PCS; 2024-01-22)
PROC: B2111ZZ Fluoroscopy of Multiple Coronary Arteries using Low Osmolar Contrast (ICD-10-PCS; 2024-01-22)
PROC: 4A023N7 Measurement of Cardiac Sampling and Pressure, Left Heart, Percutaneous Approach (ICD-10-PCS; 2024-01-22)
DX: I21.29 ST elevation (STEMI) myocardial infarction involving other sites (principal); G90.50 Complex regional pain syndrome I, unspecified; M54.9 Dorsalgia, unspecified; R68.84 Jaw pain; E78.00 Pure hypercholesterolemia, unspecified; I10 Essential (primary) hypertension; M17.12 Unilateral primary osteoarthritis, left knee; E03.9 Hypothyroidism, unspecified; I25.10 Atherosclerotic heart disease of native coronary artery without angina pectoris; E66.01 Morbid (severe) obesity due to excess calories; J45.998 Other asthma; I25.2 Old myocardial infarction; Z68.37 Body mass index [BMI] 37.0-37.9, adult; Z88.1 Allergy status to other antibiotic agents; Z88.0 Allergy status to penicillin; Z91.013 Allergy to seafood; Z88.2 Allergy status to sulfonamides; Z91.018 Allergy to other foods; Z79.890 Hormone replacement therapy; Z79.52 Long term (current) use of systemic steroids; Z98.61 Coronary angioplasty status
CPT/HCPCS: 80053; 80061; 83036; 83735; 84484; 85025; 85027; 85347; 85610; 85730; 93005; 93306; 93458; 99152; 99153; 99291; C1725; C1769; C1874; C1894; C9606; Q9967

== ENCOUNTER 2024-03-19 07:45 | Day surgery (SDC) | payer MEDICARE, SELFPAY ==
[2024-03-19] VITALS (16 sets, daily range): BP systolic 91–156; BP diastolic 41–111; BMI 39.3
[2024-03-19] MEDS: NSS 302 ML IV (09:04)
[2024-03-19 10:01] LABS: ACT-LR - POC 319 Seconds (116-155)
[2024-03-19 10:21] LABS: ACT-LR - POC 269 Seconds (116-155)
[2024-03-19 10:42] LABS: ACT-LR - POC 302 Seconds (116-155)
[2024-03-19 11:35] LABS: ACT-LR - POC 282 Seconds (116-155)
--- NOTE | 2024-03-19 12:00 | PTCARENOTE ---
Patient received from the cath laboratory technician. Right radial band intact, POX 98% on room air. She is alert and oriented, talkative. SR on telemetry, at bedside
--- NOTE | 2024-03-19 12:57 | ITS.CL.CATH ---
Derrick Operator - Catheterization
Cardiac Catheterization
Procedure Report:
LEFT HEART CATHETERIZATION AND CORONARY INTERVENTION
Date of Procedure: March 19, 2024
Referring: Ca Rich MD, [facility], [facility]
PROCEDURES:
1. Left catheterization, coronary angiogram.
2. Ultrasound-guided access.
3. Successful percutaneous coronary artery intervention with 3.0 x 22 mm Medtronic Paradise drug-eluting stent to 80 to 90% heavily calcified mid to distal RCA stenosis, postdilated using a 3.25 x 20 mm NC balloon at 18 malissa with an excellent
angiographic result.
4. Successful percutaneous coronary artery invention with a 3.0 x 22 mm Medtronic Paradise drug-eluting stent to eccentric 80% ostial to proximal RCA stenosis, postdilated using a 3.5 x 20 mm NC balloon at 18 malissa with an excellent angiographic result.
INDICATION: Patient is a 73-year-old female with past medical history of hypertension, hypothyroidism, hyperlipidemia, osteoarthritis of left knee, reflex sympathetic dystrophy, morbid obesity, lateral ST elevation UT on January 22, 2024 with 2
overlapping Medtronic Sylvester drug-eluting stents to left circumflex/OM1 (2.75 x 15 mm and a 2.25 x 12 mm) on continue dual antiplatelet therapy with daily baby aspirin and Brilinta 90 mg twice daily who now presents for staged PCI to the RCA.
ACCESS: Right radial artery, 6 Fijian sheath, under ultrasound guidance.
HEMODYNAMICS : (mmHg)
AO (s/d) : 160/80, mean of 120
CORONARY FINDINGS
DOMINANCE: Right
LEFT MAIN: The left main artery is a large-caliber vessel which gives rise to the left anterior descending artery and the left circumflex artery. There is minimal luminal irregularities.
LEFT ANTERIOR DESCENDING: The left anterior descending artery is a medium to large caliber vessel gives rise to 1 major diagonal branch as it courses to the anterior interventricular groove and wraps around the apex. There is mild to moderate
diffuse atherosclerotic plaque.
CIRCUMFLEX: The left circumflex artery is a medium caliber vessel which gives rise to 2 major obtuse marginal branches, moderately tortuous. Recently placed stents to mid left circumflex and OM1 are widely patent. OM 2 has a 30 to 40% stenosis in
the midportion with a subtotal occlusion in the distal portion with faint right to left collaterals.
RIGHT CORONARY ARTERY: The right coronary artery is a large-caliber, dominant vessel which gives rise to the right posterior descending artery and the right posterolateral system. There is an eccentric 70-80% stenosis with ventricularization and
significant pressure dampening upon selective engagement with a 6 Fijian JR4 guide catheter. Mid RCA has diffuse 40 to 50% stenosis. With a focal 80 to 90% heavily calcified stenosis. Ostial RPDA has eccentric 20 to 30% stenosis. There are faint
right to left collaterals.
CORONARY INTERVENTION: Additional heparin was given to maintain a therapeutic ACT throughout the case. The right coronary artery was engaged using a 6 Fijian JR4 guide catheter. A 190 cm 0.014' BMW wire was carefully navigated across the ostial
and mid RCA stenosis into the distal vessel. We initially attempted to pre-dilate the mid lesion with a 3.0 x 20 mm semicompliant balloon however we could not successfully cross the focal eccentric lesion. To help facilitate delivery we tried
using the balloon and predilated the ostial lesion at 14 malissa with good expansion. Subsequently, we introduced a 1.5 x 12 mm Euphora semicompliant balloon through a 6 Fijian guide liner for support and predilated up to 22 malissa with residual waist at
the focal high-grade stenosis in the mid to distal RCA. Given significant ostial to proximal RCA stenosis, we saw significant pressure dampening while bringing in the guide liner and transient ST elevations and continuously had to maneuver the
guide liner into and out of the vessel to prevent and minimize ischemic time and balancing that with using guide liner support to deliver balloons distally. We further predilated using a 2.0 x 12 mm NC balloon through the guide liner at 22 malissa with
residual waist. Next we proceeded to further pre-dilate by bringing in a 2.25 x 12 mm NC balloon using guide liner support and thankfully were able to expand the lesion at this point. We further predilated the lesion using a 3.0 x 15 mm NC balloon
at 16 malissa with full expansion prior to stenting the lesion with a 3.0 x 22 mm Medtronic Sylvester drug-eluting stent. We postdilated the stent using a 3.25 x 20 mm NC balloon at 18 malissa. We then turned our attention to the ostial and proximal disease.
We had further predilated using the 3.0 x 22 mm stent balloon at 14 malissa with good expansion. We stented subsequently using a 3.0 x 22 mm Medtronic Sylvester drug-eluting stent and postdilated the stent using a 3.5 x 20 mm NC balloon at 18 malissa with an
excellent angiographic result. Patient tolerated the procedure well and there were no acute complications.
SEDATION: 149 minutes of procedural sedation was utilized. An independent medical records secretary was present to assist with and help manage the patient's level of consciousness and physiologic status.
RADIATION SUMMARY: Fluoro Time (min): 34.2, Dose (mGy): 1175.7 DAP (Gy.cm2) : 58.6
Closure Device: Vascular band over right radial artery, 10 cc of air.
CONCLUSIONS
1. Successful percutaneous coronary artery intervention with 3.0 x 22 mm Medtronic Paradise drug-eluting stent to 80 to 90% heavily calcified mid to distal RCA stenosis, postdilated using a 3.25 x 20 mm NC balloon at 18 malissa with an excellent
angiographic result.
2. Successful percutaneous coronary artery invention with a 3.0 x 22 mm Medtronic Paradise drug-eluting stent to eccentric 80% ostial to proximal RCA stenosis, postdilated using a 3.5 x 20 mm NC balloon at 18 malissa with an excellent angiographic result.
3. Widely patent left circumflex/OM stent recently placed in December,.
4. Mild to moderate diffuse atherosclerotic plaque in the LAD/diagonal arteries without obstructive stenosis.
RECOMMENDATIONS
1. Continue uninterrupted dual antiplatelet therapy with daily baby aspirin and Brilinta 90 mg twice daily along with aggressive lipid-lowering agents in the setting of statin allergy.
2. Wean radial band per protocol.
3. Aggressive management of cardiovascular risk factors.
4. Referral for outpatient cardiac rehab.
Ca iRch MD, [facility], [facility]
--- NOTE | 2024-03-19 16:04 | CM ---
CM following for DC planning needs.
Met w/ patient and spouse at bedside to complete initial assessment.
Patient resides w/ spouse in a private, 2 story home w/ 2-3 LAVELL. Functionally, patient is indep. w/ ADLs, mobility without the use of any assisted device. DME in the home include SPC, RW and chair lift.
Anticipated DC plan is for home without needs.
CM will cont. to follow.
[2024-03-19] MEDS: LIPITOR 80 MG PO (17:42)
[2024-03-19] MEDS: BRILINTA 90 MG PO (19:58)
[2024-03-19] MEDS: VASOTEC 5 MG PO (19:58)
[2024-03-20 02:14] VITALS: BP 141/81
[2024-03-20 03:13] LABS: Hematocrit 40.2 % (37.0-47.0); Hemoglobin 13.8 g/dL (12.0-16.0); Mean Corp Hgb Conc. 34.3 g/dL (33.0-37.0); Mean Corpuscular Hgb 32.3 pg (27.0-31.0); Mean Corpuscular Volume 94.1 fL (81.0-99.0); Mean Platelet Volume 11.4 fL (7.4-10.4); Platelet Count 303 10^3/uL (130-400); Red Blood Cell Count 4.27 10^6/uL (4.20-5.40); Red Cell Dist. Width 13.2 % (11.5-14.5); White Blood Cell Count 17.9 10^3/uL (4.8-10.8)
[2024-03-20 03:32] LABS: Blood Urea Nitrogen 18 mg/dl (7-17); Calcium 10.1 mg/dl (8.4-10.2); Carbon Dioxide 20 mmol/L (22-30); Chloride 106 mmol/L (98-107); Estimated Creatinine Clearance 94 ml/min; Glucose 117 mg/dl (70-99); HDL Cholesterol 39 mg/dl; LDL Cholesterol, Calculated 55 mg/dl; Potassium 4.5 mmol/L (3.5-5.1); Sodium 141 mmol/L (135-145); Total Cholesterol 116 mg/dl (50-199); Triglyceride 110 mg/dl (10-149); Very Low Density Lipoprotein 22 mg/dl (0-30); eGFR > 60.00
--- NOTE | 2024-03-20 04:12 | PTCARENOTE ---
HR SR. R radial dressing CDI, site soft + no hematoma present. Reinforced CAD education and activity restrictions w/ pt. pt states understanding. Pt denies any CP, SOB, or lightheadedness/dizziness. Informed to notify RN if any changes, call dixon
within reach.
Pt awake in middle of night confused to where she was. Pt reoriented to place, time, and situation. Pt always maintained orientation to self. Pt had prison peeled off R radial dressing, new dressing applied to site. Site still soft, no hematoma.
--- NOTE | 2024-03-20 07:27 | W.PN.CARDCBS ---
Addendum entered and electronically signed by Ca Rich MD 03/20/24 17:16:
I saw and examined the patient.
The Graining Press Operator's note was reviewed and I agree with the note.
Comment: Patient is seen and evaluated at bedside with no major complaints overnight. After they took the radial band off she had some oozing at the right radial site which resolved after holding manual pressure. Ecchymosis noted on exam this
morning with no significant discomfort at the right radial site.
Vital signs and lab work reviewed. On exam patient is well-appearing in no acute distress, normal S1 and S2, no murmurs, rubs or gallops, right radial access site is ecchymotic with dressing still in place which is clean, dry and intact, no
evidence of hematoma or bruit, lungs are clear to auscultation bilaterally, abdomen is soft, nontender, nondistended with active bowel sounds, obese, no significant lower extremity edema
Telemetry without significant events overnight. EKG with no acute ischemic changes.
Recommendations:
1. Continue dual antiplatelet therapy with aspirin and Brilinta along with beta-vandana as tolerated. Given significant statin allergy, will continue to work with patient to optimize her lipids with nonstatin lipid-lowering agents.
2. Stable for discharge from a cardiac standpoint.
3. Cardiac rehab consult was placed and patient has an appointment to be seen as an outpatient.
4. Continued outpatient management of cardiovascular risk factors aggressively.
Ca Rich MD, [facility], [facility]
Addendum entered and electronically signed by CORAL Polanco 03/20/24 12:39:
Dictated discharge summary #[id number].
Original Note:
Today's Communication / Plan
-
ready for discharge
DAPT, high intensity statin, beta vandana, BP control
cardiac rehab arranged
Impression / Plan
-
PCP: Asya Bonilla MD
CDY: Ca Rich MD
IMPRESSION:
s/p staged PCI/drug-eluting stent mid to distal RCA 80 to 90% stenosis and PCI/drug-eluting stent ostial- proximal RCA stenosis 03/19/24
Lateral STEMI 01/22/24
post PCI OM1 ostial/prox 2.25 x 12 mm and 2.75 x 15 mm Medtronic Sylvester overlapping LEONORA 01/22/24
Residual ostial RCA disease
HTN
HLD
Hypothyroidism
Asthma
OA left knee
Reflex sympathetic dystrophy after emergent cervical laminectomy
Obesity
Multiple allergies, cannot tolerate generic medications
elevated WBC
Cardiac catheterization 03/19/2024: LM w/ luminal irregularities; LAD mild to moderate diffuse atherosclerotic plaque; CIRC medium caliber vessel giving rise to 2 major OM branches, recent stent mid CIRC and OM1 are widely patent, OM 2 30-40%
stenosis mid with subtotal occlusion distal with faint right to left collaterals; RCA 70 to 80% ostial to proximal stenosis status post LEONORA, mid RCA 40 to 50% stenosis, mid to distal RCA with 80 to 90% stenosis status post LEONORA
Echo 01/22: EF 60-65%, inf/lat HK, mild LVH, mild MR/AR
EK03/20/24: NSR, LVH
PLAN:
post PCI/LEONORA x 2 to RCA
DAPT with ASA/Brilinta
Aggressive lipid-lowering, LDL 55 03/20/24-at goal, on atorvastatin 80 mg
cont beta vandana, enalapril
Outpatient cardiac rehab scheduled
no c/o CP, SOB
tele SR no sig ectopy
Rad site stable
f/u at [facility] scheduled for 04/02/24
elevated WBC likely due to steroids given during cath, no fever, chills, evidence of cath site infection
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
Subjective
Date of Service: March 20, 2024
Status post LEONORA x 2 to RCA
denies CP/SOB
no fevers, chills
had bleeding at R radial cath puncture site yest- pressure held and new dressing placed- no recurrent bleeding
Objective
Labs:
03/20/24 02:31
03/20/24 02:31
Labs
Hgb 13.8 g/dL (12.0-16.0) 03/20/24 02:31
Hct 40.2 % (37.0-47.0) 03/20/24 02:31
Plt Count 303 10^3/uL (130-400) 03/20/24 02:31
Sodium 141 mmol/L (135-145) 03/20/24 02:31
Potassium 4.5 mmol/L (3.5-5.1) 03/20/24 02:31
BUN 18 mg/dl (7-17) H 03/20/24 02:31
Creatinine 0.6 mg/dL (0.6-1.0) 03/20/24 02:31
Glucose 117 mg/dl (70-99) H 03/20/24 02:31
Vital Signs and I&O:
Vital Signs
Temp Pulse Resp BP Pulse Ox
97.8 F 58 20 141/81 95
03/20/24 02:14 03/20/24 05:15 03/20/24 02:14 03/20/24 02:14 03/20/24 02:14
Vital Signs
Temp Pulse Resp BP Pulse Ox
97.8 F 58 20 141/81 95
03/20/24 02:14 03/20/24 05:15 03/20/24 02:14 03/20/24 02:14 03/20/24 02:14
Physical Exam
Physical Exam
GEN: No distress, awake, Ox3
HEENT: supple, anicteric, mmm
LUNGS: CTA, no wheezes/rales
CV: Reg, S1/S2, no murmur
ABD: soft, BS+, NT/ND
EXT: No edema. R radial cath site w/ bandage, mild ecchymosis, nontender
NEURO: Gross non-focal
SKIN: No rash
[2024-03-20 07:55] VITALS: BP 141/65
[2024-03-20] MEDS: TOPROL XL 25 MG PO (08:09)
[2024-03-20] MEDS: VASOTEC 5 MG PO (08:09)
[2024-03-20] MEDS: SYNTHROID 75 MCG PO (08:09)
[2024-03-20] MEDS: BRILINTA 90 MG PO (08:09)
--- NOTE | 2024-03-20 08:19 | PTCARENOTE ---
Assumed care. Patient AO x3, very conversant. NSR, bp 141/65. Right radial site soft, slighlty bruised. Up tot he bathroom, ambulating in the room with rolling walker. Call dixon in reach
--- NOTE | 2024-03-20 08:34 | W.DS.TRANS ---
DC Summary - Permanent Mold Supervisor
-
Discharge Instructions:
Discharge Diagnosis/Procedures Angioplasty and stent x2 to Right Coronary
artery
Diet Low Cholesterol
Activity Other activity
Additional Activity see cath/EP lab instruction sheet
Driving Restrictions No driving for 24 hours
Other Services Cardiac Rehab
Instructions:
Stand-Alone Forms: DC Instructions- Cath/EP Lab
Changes to Home Medications: No
Discharge Medications:
DC Medications w/original date entered in [facility]
albuterol sulfate 90 mcg/actuation aerosol inhaler (Ventolin HFA) 2 puff inhalation R BIDPRN PRN sob/wheezing 01/22/24
ascorbic acid (vitamin C) 500 mg tablet (Vitamin C) 500 mg PO DAILY Supplement 01/22/24
beclomethasone diprop (AQ) 42 mcg (0.042 %) nasal spray 84 mcg intranasal BID Anti-Inflammatory 01/22/24
calcium carbonate (Calcium 600) 600 mg PO DAILY Supplement 01/22/24
diazepam 2 mg tablet 2 mg PO BIDPRN PRN muscle spasms 01/22/24
levothyroxine 75 mcg tablet (Synthroid) 75 mcg PO DAILY Thyroid 01/22/24
magnesium 250 mg tablet 250 mg PO DAILY Supplement 01/22/24
multivitamin-ferrous fumarate-folic acid 18 mg-400 mcg tablet (Centrum) 1 tab PO DAILY Supplement 01/22/24
prednisone 5 mg tablet 5 mg PO DAILYPRN PRN swelling 01/22/24
vitamin E 268 mg (400 unit) capsule 268 mg PO DAILY Supplement 01/22/24
aspirin 81 mg chewable tablet 81 mg PO DAILY #1 tab 01/24/24
atorvastatin 80 mg tablet 80 mg PO QPM #90 tabs 01/24/24
enalapril maleate 5 mg tablet 5 mg PO BID #60 tabs 01/24/24
loratadine 10 mg tablet 10 mg PO DAILY #1 tab 01/24/24
metoprolol succinate 25 mg tablet,extended release 24 hr 25 mg PO DAILY #90 tabs 01/24/24
nitroglycerin 0.4 mg sublingual tablet 0.4 mg sublingual [id number] PRN chest pain #25 tabs 01/24/24
ticagrelor 90 mg tablet (Brilinta) 90 mg PO BID #60 tabs 03/20/24
Home Medication Changes
Pending Results: No
--- NOTE | 2024-03-20 12:08 | PTCARENOTE ---
Patient discharged to home. Instruction reviewed with patient and , the both verbalized understanding, escorted to main lobby with a wheelchair
== END 2024-03-20 11:52 | disposition home or self-care (01) ==
LOC: CATH 07:45
PROVIDERS: Nurse Practitioner; ATTENDING PHYSICIAN Internal Medicine Interventional Cardiology; FAMILY PHYSICIAN Internal Medicine
DX: I25.10 Atherosclerotic heart disease of native coronary artery without angina pectoris (principal); E03.9 Hypothyroidism, unspecified; E78.5 Hyperlipidemia, unspecified; I11.9 Hypertensive heart disease without heart failure; I25.2 Old myocardial infarction; M17.12 Unilateral primary osteoarthritis, left knee; Z79.02 Long term (current) use of antithrombotics/antiplatelets; Z95.5 Presence of coronary angioplasty implant and graft; Z88.9 Allergy status to unspecified drugs, medicaments and biological substances; G90.50 Complex regional pain syndrome I, unspecified; E66.01 Morbid (severe) obesity due to excess calories; Z79.82 Long term (current) use of aspirin
CPT/HCPCS: 80048; 80061; 85027; 85347; 93005; 99152; 99153; C1725; C1769; C1874; C1894; C9600; Q9967

== ENCOUNTER 2024-07-27 01:44 | Emergency (ER) | payer MEDICARE, SELFPAY ==
[2024-07-27 01:47] VITALS: BP 164/112
--- NOTE | 2024-07-27 02:32 | ED.GENMED ---
History of Present Illness
<ALFERDO Esqueda - Last Filed: 07/27/24 03:18>
General
Chief Complaint: Abdominal Symptoms
Source: patient
Time Seen by Provider: 07/27/24 02:03
History of Present Illness
History of Present Illness:
This is a 74 y/o female with PMH of HLD, HTN, hypothyroid, reflex sympathetic dystrophy, asthma who presents to the ER with c/o of abdominal discomfort. Pt admits to waking up today with a 'stomach ache' that was intermittent throughout the day. She
took 'Briosky' which provided her some temporary relief but the stomach discomfort returned. She describes the discomfort as pressure and 5/10 severity at its worst. She admits to 3 BM today, 2 of which were loose and lots of flatus today. She
admits to pressure in her jaw that has been constant throughout the day. She admits to nausea but denies vomiting. Admits to decreased appetite today. She admits to 20lb weight loss since Mar 2024 with diet modifications. She denies known
fever/chills, cough, sore throat, dysuria, shortness of breath, night sweats, chest pain, back pain. Last Cologuard was normal in 2023, per pt.
Past History
<ALFREDO Esqueda - Last Filed: 07/27/24 03:18>
Past History
ED Past Medical History: HTN, Hypercholesterolemia and Other (Arthritis)
ED Past Surgical History: Orthopedic and Tonsilectomy
Social History
Personal:
Phy Exam
<ALFREDO Esqueda - Last Filed: 07/27/24 03:18>
Physical Exam
Physical Exam:
Skin: [place], soft, well-hydrated
Head: Atraumatic, normocephalic
Chest and Lungs: muscle and respiratory effort symmetric without use of accessory muscles; vesicular breath sounds without adventitious sounds; even, quiet breathing
Heart: No lifts or heaves visible; regular rate and rhythm
PV: radial, dorsalis pedis and posterior tibial pulses all intact bilaterally
Abd: soft, rounded, non-distended abdomen; aorta midline with no visible pulsation; normoactive bowel sounds; diffuse tenderness throughout abdomen on palpation; no CVA tenderness
Course
<[place] Jim, [facility] - Last Filed: 07/27/24 03:18>
Orders/Labs/Results
Orders:
Orders
07/27/24 02:39
Electrocardiogram (*1) Urgent
Reason for Study: Abdominal Pain
EKG- Treatment ONCE
07/27/24 03:01
CMP [Comprehensive Metabolic Panel] Urgent
Complete Blood Count/With Diff Urgent
Lactic Acid Urgent
Lipase Urgent
Troponin I Urgent
07/27/24 03:14
0.9% Sodium Chloride 1000 ml [Nss] 1,000 ml IV BOLUS
07/27/24 03:36
Diphenhydramine [Benadryl] 50 mg IV NOW STA
Hydrocortisone Sod Succinate [Solu-Cortef] 200 mg IV NOW STA
07/27/24 04:32
CT Abd/pelvis W Iv Cont Urgent
Comment:
Reason For Exam: gen abd pain, nausea
Abnormal Lab Results
07/27/24
03:01
MCH 31.8 H pg
(27.0-31.0)
Absolute Neuts (auto) 7.5 H 10^3/uL
(1.4-6.5)
Absolute Lymphs (auto) 0.5 L 10^3/uL
(1.2-3.4)
Neutrophils % 86.3 H %
(42.2-75.2)
Lymphocytes % 5.4 L %
(20.5-51.1)
Glucose 118 H mg/dl
(70-99)
AST 37 H U/L
(14-36)
07/27/24 03:01
07/27/24 03:01
Vital Signs
Initial and Last Documented VS:
Initial Vital Signs
Temp Pulse Resp BP Pulse Ox
99.3 F 82 20 164/112 95
07/27/24 01:47 07/27/24 01:47 07/27/24 01:47 07/27/24 01:47 07/27/24 01:47
Last Documented Vital Signs
Temp Pulse Resp BP Pulse Ox
99.3 F 76 20 125/81 95
07/27/24 01:47 07/27/24 05:30 07/27/24 05:33 07/27/24 04:00 07/27/24 01:47
<Paty Sweeney, DO - Last Filed: 07/27/24 07:56>
Orders/Labs/Results
Orders:
Orders
07/27/24 02:39
Electrocardiogram (*1) Urgent
Reason for Study: Abdominal Pain
EKG- Treatment ONCE
07/27/24 03:01
CMP [Comprehensive Metabolic Panel] Urgent
Complete Blood Count/With Diff Urgent
Lactic Acid Urgent
Lipase Urgent
Troponin I Urgent
07/27/24 03:14
0.9% Sodium Chloride 1000 ml [Nss] 1,000 ml IV BOLUS
07/27/24 03:36
Diphenhydramine [Benadryl] 50 mg IV NOW STA
Hydrocortisone Sod Succinate [Solu-Cortef] 200 mg IV NOW STA
07/27/24 04:32
CT Abd/pelvis W Iv Cont Urgent
Comment:
Reason For Exam: gen abd pain, nausea
Abnormal Lab Results
07/27/24
03:01
MCH 31.8 H pg
(27.0-31.0)
Absolute Neuts (auto) 7.5 H 10^3/uL
(1.4-6.5)
Absolute Lymphs (auto) 0.5 L 10^3/uL
(1.2-3.4)
Neutrophils % 86.3 H %
(42.2-75.2)
Lymphocytes % 5.4 L %
(20.5-51.1)
Glucose 118 H mg/dl
(70-99)
AST 37 H U/L
(14-36)
07/27/24 03:01
07/27/24 03:01
Vital Signs
Initial and Last Documented VS:
Initial Vital Signs
Temp Pulse Resp BP Pulse Ox
99.3 F 82 20 164/112 95
07/27/24 01:47 07/27/24 01:47 07/27/24 01:47 07/27/24 01:47 07/27/24 01:47
Last Documented Vital Signs
Temp Pulse Resp BP Pulse Ox
99.3 F 76 20 125/81 95
07/27/24 01:47 07/27/24 05:30 07/27/24 05:33 07/27/24 04:00 07/27/24 01:47
<ALFREDO Esqueda - Last Filed: 07/27/24 03:18>
MDM/Problems Addressed
MDM/Problems Addressed:
This is a 74 y/o female with diffuse abdominal discomfort since she woke up this morning. Admits to nausea, loose stools, weight loss, decreased appetite and jaw pressure. She denies chest pain, SOB, cough. Diffuse abdominal tenderness to
palpation. Will check troponin and EKG to r/o STEMI due to pt history of STEMI that presented with jaw pressure in December 2023.
<ALFREDO Esqueda - Last Filed: 07/27/24 03:18>
*Critical Care Note
Total Time (30-74mins, 75-104mins- exclusive of procedures): Not Applicable
<Paty Sweeney DO - Last Filed: 07/27/24 07:56>
*Radiology
Radiology exam reviewed: radiology read reviewed
*Pulse Oximetry
Patient hypoxic: no
*EKG
Interpreted by ED Provider?: Yes
Interpretation: normal
Comparison EKG: no changes
Rate: normal
Rhythm: sinus
[place]: left axis deviation
Interval: normal interval
QRS Pattern: normal QRS
Ischemia: no ischemia
*Supply Clerk Interpretation
Rate: normal
Interpretation: normal
Rhythm: sinus
ED Attending Note
<ALFREDO Esqueda - Last Filed: 07/27/24 03:18>
-
Portions of this chart may have been created with voice recognition software.� Occasional wrong word or��sound alike� substitutions may have occurred due to the inherent limitations of voice recognition software.
<Paty Sweeney DO - Last Filed: 07/27/24 07:56>
ED Attending Note
Patient seen and examined by attending physician: Yes
I performed the substantive portion of visit, reviewed & personally made and approve the management plan that is documented in note by myself or LANIE.: Yes
ED Attending Note:
This is a 74-year-old woman with history of CAD status post PTCA with stent March 2024. History of hypertension, hyperlipidemia, hypothyroidism, obesity. She complains of intermittent generalized abdominal discomfort, somewhat cramping in
nature that began yesterday morning. Temporized with antiacid but seemed more persistent this evening which prompted ED evaluation. She does admit to intermittent nausea but has had no vomiting. She passed a loose stool yesterday afternoon but no
recurrent loose stools, no hematochezia. She denies dysuria and urgency and or hematuria. No back pain or flank pain. She denies chest pain, no coughing or shortness of breath. Current abdominal pain feels quite different from chest pain and jaw
ache she experienced with [place] in March.
Since arrival to the ED, abdominal pain has resolved and she is currently comfortable.
GENERAL: 74-year-old woman appears her stated age, awake and alert, pleasant, appears in no acute distress. is accompanying. Borderline low-grade fever noted. Patient has not noticed a fever at home.
EYE: anicteric
NECK: Supple, nontender, no meningismus, no significant adenopathy.
ENT: oral mucosa is moist. No rhinorrhea.
CARDIAC: Regular rate and rhythm. no murmur.
LUNGS: Clear breath sounds bilaterally, no acute respiratory distress, no wheezes/rales/rhonchi
ABDOMEN: Rotund, soft, nondistended, without focal tenderness, no r/g, no cvat. normoactive BS.
NEUROLOGICAL: Alert and oriented x3, no focal neuro deficits.
SKIN: Warm and dry, normal color, skin intact. No rash.
MUSCULOSKELETAL: No C/C/E. peripheral pulses are full and equal b/l. No palpable tenderness.
PSYCH: Normal and appropriate interaction.
Concern for acute gastroenteritis, colitis, gastritis, small bowel obstruction, cholecystitis, pancreatitis, ischemic bowel. This and other entities considered. ACS is less likely.
Patient currently comfortable. Will continue to observe for return of pain.
Will check labs including lactic acid, troponin and will check EKG.
Will plan for CT abdomen pelvis. Patient notes allergy to shellfish. Unclear if she has previously received IV contrast. Will pretreat with hydrocortisone and Benadryl.
06:00
Patient feeling improved. No return of abdominal pain.
Labs are unremarkable. Normal troponin. Normal lactic acid.
CAT scan shows mild small bowel ileus versus mild enteritis. No obstruction. Otherwise unremarkable.
Recommend supportive measures. Limiting diet to clear liquids today, slowly advance as tolerated.
Prompt follow-up with PCP for recheck.
Return precautions discussed.
Discharge Plan
Departure
Patient Disposition: Home (Routine Discharge)
Date of Disposition: 07/27/24
Time of Disposition: 06:14
Patient with high blood pressure during this ER visit?: No
Condition: Good
Discharge Problem:
acute mild enteritis
Instructions: Viral gastroenteritis in adults, Clear liquid diet
Prescriptions:
No Action
prednisone 5 mg tablet
5 mg PO DAILYPRN PRN (Reason: swelling)
levothyroxine [Synthroid] 75 mcg tablet
75 mcg PO DAILY
calcium carbonate [Calcium 600] 600 mg calcium (1,500 mg) Tablet
600 mg PO DAILY
ascorbic acid (vitamin C) [Vitamin C] 500 mg Tablet
500 mg PO DAILY
beclomethasone diprop (AQ) 42 mcg (0.042 %) spray,non-aerosol
84 mcg INTRANASAL BID
magnesium 250 mg Tablet
250 mg PO DAILY
albuterol sulfate [Ventolin HFA] 90 mcg/actuation HFA aerosol inhaler
2 puff INHALATION R BIDPRN PRN (Reason: sob/wheezing)
vitamin E 268 mg (400 unit) Capsule
268 mg PO DAILY
Centrum 18-400 mg-mcg Tablet
1 tab PO DAILY
diazepam 2 MG tablet
2 mg PO BIDPRN PRN (Reason: muscle spasms)
Patient Comments:
01/22/2024: last filled 10/27/23, 180 tabs for 90 days from [facility]
loratadine 10 mg Tablet
10 mg PO DAILY Qty: 1 0RF
atorvastatin 80 mg Tablet
80 mg PO QPM Qty: 90 5RF
aspirin 81 mg Tablet,Chewable
81 mg PO DAILY Qty: 1 0RF
enalapril maleate 5 mg Tablet
5 mg PO BID Qty: 60 5RF
metoprolol succinate 25 mg Tablet Extended Release 24 Hr
25 mg PO DAILY Qty: 90 5RF
nitroglycerin 0.4 mg tablet, sublingual
0.4 mg sublingual [id number] PRN (Reason: chest pain) Qty: 25 5RF
Brilinta 90 mg Tablet
90 mg PO BID Qty: 60 11RF
Referrals:
Asya Bonilla MD [Family Provider] - Call in 1-3 days for appt
Interventions
Interventions:
*Risk Screen - Suicide Last Done: 07/27/24 01:47
*General Assessment Last Done: 07/27/24 07:12
*Neglect/Abuse Screening Last Done: 07/27/24 01:47
ED- Fall Risk Assessment Last Done: 07/27/24 04:48
*ED COVID-19 Vaccine History Last Done: 07/27/24 07:12
*Nursing Disposition Last Done: 07/27/24 06:30
TH-Brdnff-Htsashwijb Assessment Last Done: 07/27/24 04:48
Discharge Date and Time
Discharge Date/Time: 07/27/24 06:30
Print Language: GREENLANDIC
[2024-07-27 03:00] VITALS: BMI 38.0
[2024-07-27 03:16] LABS: % Basophils 0.5 % (0-2); % Immature Granulocytes 0.3 % (0-0.5); % Lymphocytes 5.4 % (20.5-51.1); % Monocytes 5.5 % (1.7-9.3); % Neutrophils 86.3 % (42.2-75.2); Absolute Eosinophils 0.2 10^3/uL (0-0.7); Absolute Lymphocytes 0.5 10^3/uL (1.2-3.4); Absolute Monocytes 0.5 10^3/uL (0.1-0.6); Absolute Neutrophils 7.5 10^3/uL (1.4-6.5); Hematocrit 44.1 % (37.0-47.0); Hemoglobin 14.8 g/dL (12.0-16.0); Mean Corp Hgb Conc. 33.6 g/dL (33.0-37.0); Mean Corpuscular Hgb 31.8 pg (27.0-31.0); Mean Corpuscular Volume 94.8 fL (81.0-99.0); Mean Platelet Volume 10.1 fL (7.4-10.4); Nucleated Red Blood Cells % 0 %; Platelet Count 231 10^3/uL (130-400); Red Blood Cell Count 4.65 10^6/uL (4.20-5.40); White Blood Cell Count 8.7 10^3/uL (4.8-10.8)
[2024-07-27] MEDS: NSS 1000 IV (03:20)
[2024-07-27 03:31] LABS: Lactic Acid 1.8 mmol/L (0.7-2.0)
[2024-07-27 03:33] LABS: ALT (SGPT) 24 U/L (0-35); AST (SGOT) 37 U/L (14-36); Albumin 4.5 g/dl (3.5-5.0); Alkaline Phosphatase 78 U/L (38-126); Blood Urea Nitrogen 14 mg/dl (7-17); Carbon Dioxide 26 mmol/L (22-30); Chloride 99 mmol/L (98-107); Estimated Creatinine Clearance 95 ml/min; Glucose 118 mg/dl (70-99); Lipase 75 U/L (23-300); Potassium 4.2 mmol/L (3.5-5.1); Sodium 137 mmol/L (135-145); Total Bilirubin 1.2 mg/dl (0.2-1.3); Total Protein 7.1 g/dl (6.3-8.2); eGFR > 60.00
[2024-07-27 03:34] VITALS: BP 102/83
[2024-07-27] MEDS: BENADRYL 50 MG IV (03:42)
[2024-07-27] MEDS: SOLU-CORTEF 200 MG IV (03:42)
[2024-07-27 03:44] LABS: Troponin I 0.021 ng/ml
[2024-07-27 04:00] VITALS: BP 125/81
== END 2024-07-27 06:30 | disposition home or self-care (01) ==
LOC: EMR 01:44
PROVIDERS: EMERGENCY PHYSICIAN Emergency Medicine; FAMILY PHYSICIAN Internal Medicine
DX: K52.9 Noninfective gastroenteritis and colitis, unspecified (principal); E03.9 Hypothyroidism, unspecified; E78.00 Pure hypercholesterolemia, unspecified; I10 Essential (primary) hypertension; J45.909 Unspecified asthma, uncomplicated; I25.10 Atherosclerotic heart disease of native coronary artery without angina pectoris; Z95.5 Presence of coronary angioplasty implant and graft
CPT/HCPCS: 96374; 96375; 96361; 99284; 74177; 80053; 83605; 83690; 84484; 85025; 93005; Q9967

== ENCOUNTER → 2025-04-01 15:30 | Outpatient (REF) | payer MEDICARE, SELFPAY | LOC: RAD 15:30 | PROVIDERS: ATTENDING PHYSICIAN Physician Assistant; FAMILY PHYSICIAN Internal Medicine | DX: R06.02 Shortness of breath (principal) | CPT/HCPCS: 71046 ==